=== PATIENT | male | born 1960 | race African-American/Black ===

== ENCOUNTER 2019-10-07 07:12 | Day surgery (SDC) | payer BC ==
[~2019-10-07] VITALS: Ht 172.7 cm; Wt 117.9 kg
[2019-10-07] VITALS (10 sets, daily range): BP systolic 108–148; BP diastolic 67–89
[2019-10-07] MEDS ORDERED: Midazolam 2mg/2ml Inj ONE (07:13)
[2019-10-07] MEDS ORDERED: fentaNYL 100 mcg/2 mL IV ONE (07:13)
[2019-10-07] MEDS ORDERED: ALLOPURINOL300 M1 ORAL (08:10)
[2019-10-07] MEDS ORDERED: BENAZEPRIL HCL20 MG ORAL (08:10)
[2019-10-07] MEDS ORDERED: VITAMIN D250 MCG PO (08:10)
[2019-10-07] MEDS ORDERED: DICYCLOMINE HCL10 MG ORAL (08:10)
[2019-10-07] MEDS ORDERED: FLOMAX0.4 MG ORAL (08:10)
[2019-10-07] MEDS ORDERED: ASPIR 8181 MG ORAL (08:10)
[2019-10-07] MEDS ORDERED: DICLOFENAC SODI50 MG ORAL (08:10)
[2019-10-07] MEDS ORDERED: Propofol 200mg/20ml IV ONE (09:30)
--- NOTE | 2019-10-07 09:34 | Pre-Procedure Note/Attestation ---
Pre-Procedure Note/Attestation Complete Prior to Procedure Planned Procedure: not applicable Procedure Narrative: colonoscopy Indications for Procedure Pre-Operative Diagnosis: screening colon Attestation I attest that I discussed the nature of the procedure; its benefits; risks and complications; and alternatives (and the risks and benefits of such alternatives ), prior to the procedure, with the patient (or the patient's legal employer relations representative). I attest that, if there was a reasonable possibility of needing a blood transfusion, the patient (or the patient's legal employer relations representative) was given the [facility] standardized written summary, pursuant to the Rajendra Patrick Blood Safety Act ([place] Health and Safety Code # 1645, as amended). I attest that I re-evaluated the patient just prior to the surgery and that there has been no change in the patient's H&P, except as documented below: Ousmane Maki MD Oct 07, 2019 09:34
--- NOTE | 2019-10-07 09:35 | Short Stay Surgery H&P ---
History of Present Illness History of Present Illness Chief Complaint screening colon HPI Lance Garcia is a 59 year old male who was admitted on for Colon Screening Patient History Allergies: Coded Allergies: No Known Allergies (Unverified , 10/07/19) PAST MEDICAL HISTORY: (1) HTN (hypertension) Medication History Scheduled Allopurinol* (Allopurinol*), 300 MG ORAL DAILY, (Reported) Aspirin* (Aspir 81*), 81 MG ORAL DAILY, (Reported) Benazepril Hcl* (Benazepril Hcl*), 20 MG ORAL DAILY, (Reported) Diclofenac Sod* (Voltaren*), 50 MG ORAL BID, (Reported) Dicyclomine Hcl* (Dicyclomine Hcl*), 10 MG ORAL BID, (Reported) Ergocalciferol (Vitamin D2) (Vitamin D2), 1.25 MG PO EVERY SATURDAY, (Reported) Tamsulosin HCl (Flomax), 0.4 MG ORAL DAILY, (Reported) Review of Systems Cardiovascular: Reports: no symptoms Respiratory: Reports: no symptoms Skeletal: Reports: no symptoms Gastrointestinal: Reports: no symptoms Genitourinary: Reports: no symptoms Neurologic: Reports: no symptoms Endocrine: Reports: no symptoms Physical Exam Vital Signs Last Vital Signs Date Time Temp Pulse Resp B/P (MAP) Pulse Ox O2 Delivery O2 Flow Rate FiO2 10/07/19 08:17 Room Air 10/07/19 07:57 98.5 82 18 115/78 97 Skin: normal HENT: normal Heart: normal Lungs: normal Abdomen: normal Extremities: normal Plan Plan of Care colonoscopy Attestation Are the patient's medical conditions optimized for surgery? Attestation Response: yes Ousmane Maki MD Oct 07, 2019 09:35
[2019-10-07] MEDS ORDERED: LR 1000ml 1,000 ML IVLG SCH (09:45)
[2019-10-07] MEDS ORDERED: fentaNYL 100 mcg/2 mL IV PRN (09:45)
--- NOTE | 2019-10-07 09:45 | Anethesia Preoperative Eval ---
Anesthesia Pre-op PMH/ROS General Date of Evaluation: Oct 07, 2019 Time of Evaluation: 09:22 Anesthesiologist: Christie ASA Score: ASA 2 Mallampati Score Class I : Soft palate, uvula, fauces, pillars visible Class II: Soft palate, uvula, fauces visible Class III: Soft palate, base of uvula visible Class IV: Only hard plate visible Mallampati Classification: Class II Surgeon: Shanthi Diagnosis: Abdominal pain Surgical Procedure: Colonoscopy Anesthesia History: none Family History: no anesthesia problems Allergies: Coded Allergies: No Known Allergies (Unverified , 10/07/19) Medications: see eMAR Patient NPO?: Yes Past Medical History Cardiovascular: Reports: HTN; Denies: CAD, GA, valve dz, arrhythmia, other Pulmonary: Denies: asthma, COPD, PIO, other Gastrointestinal/Genitourinary: Reports: GERD; Denies: CRI, ESRD, other Neurologic/Psychiatric: Reports: other - chronic pain; Denies: dementia, CVA, depression/anxiety, TIA Endocrine: Denies: DM, hypothyroidism, steroids, other HEENT: Denies: cataract (L), cataract (R), glaucoma, [place] (L), [place] (R), other Hematology/Immune: Denies: anemia, DVT, bleeding disorder, other Musculoskeletal/Integumentary: Denies: OA, RA, DJD, DDD, edema, other Other: obesity PMH Narrative: as above PSxH Narrative: see H&P Anesthesia Pre-op Phys. Exam Physician Exam Last Vital Signs Date Time Temp Pulse Resp B/P (MAP) Pulse Ox O2 Delivery O2 Flow Rate FiO2 10/07/19 08:17 Room Air 10/07/19 07:57 98.5 82 18 115/78 97 Constitutional: NAD Neurologic: CN 2-12 intact Cardiovascular: RRR, no M/R/G Respiratory: CTA Gastrointestinal: other - obesity Airway Exam Mallampati Score: Class III MO: limited Neck: short ROM: limited Teeth: missing Dentures: no upper, no lower Anesthesia Pre-op A/P Labs see chart Studies Pre-op Studies: EKG - NSR Risk Assessment & Plan Assessment: ASA 2 Plan: MAC Status Change Before Surgery: Berhane Sweeney MD Oct 07, 2019 09:45
--- NOTE | 2019-10-07 09:57 | Endoscopy Procedure Note ---
Endoscopy Procedure Note General Indication for Procedure: screening Procedures Performed: colonoscopy Operative Findings/Diagnosis: 7 polyps Specimen: yes Pt Tolerated Procedure Well: Yes Estimated Blood Loss: none Anesthesia Anesthesiologist: jackie Anesthesia: MAC Inserted Devices Implant(s) used?: No Quality Quality of Bowel Preparation: Excellent Did scope reach the cecum?: Yes Was there any complications?: No GI Core Measures 50 yrs or older w/o bx or poly: No 10yrs. F/U recommended: Yes If not recommended, why?: Above average risk 18 years or older w/prev. colo: Yes <3yrs. since last colonoscopy: No Ousmane Maki MD Oct 07, 2019 09:57
--- NOTE | 2019-10-07 10:00 | Immediate Post-Op Evaluation ---
Immediate Post-Op Evalulation Immediate Post-Op Evalulation Procedure: Colonoscopy Date of Evaluation: Oct 07, 2019 Time of Evaluation: 09:59 IV Fluids: 600 Blood Products: none Estimated Blood Loss: none Urinary Output: none Blood Pressure Systolic: 108 Blood Pressure Diastolic: 67 Pulse Rate: 76 Respiratory Rate: 20 O2 Sat by Pulse Oximetry: 99 Temperature (Fahrenheit): 97.7 Pain Score (1-10): 1 Nausea: No Vomiting: No Complications none Patient Status: awake, patent, none Hydration Status: adequate Berhane Soriano MD Oct 07, 2019 10:00
--- NOTE | 2019-10-07 11:31 | 48 Hour Post Anesthesia Eval ---
Post Anesthesia Evaluation Procedure: Colonoscopy Date of Evaluation: Oct 07, 2019 Time of Evaluation: 11:30 Blood Pressure Systolic: 148 0: 72 Pulse Rate: 68 Respiratory Rate: 20 Temperature (Fahrenheit): 97.7 O2 Sat by Pulse Oximetry: 98 Airway: patent Nausea: No Vomiting: No Pain Intensity: 1 Hydration Status: adequate Cardiopulmonary Status: stable Mental Status/LOC: patient returned to baseline Follow-up Care/Observations: n/a Post-Anesthesia Complications: none Follow-up care needed: ready to discharge Berhane Soriano MD Oct 07, 2019 11:31
--- NOTE | 2019-10-07 16:00 | Procedure Note ---
DATE OF PROCEDURE: 10/07/2019 SURGEON: Ousmane Maki M.D. REFERRING PHYSICIAN: Live Munoz M.D. PROCEDURE: Colonoscopy with biopsy. ANESTHESIA: Per Dr. Soriano. INSTRUMENT: Olympus adult flexible colonoscope. INDICATION: Screening colonoscopy evaluation. REASON FOR PROCEDURE: The procedure, risks, benefits, and possible consequences, including hemorrhage, aspiration, perforation and infection, and alternative treatments, were explained to the patient/legal guardian by Dr. Ousmane Maki and the patient/legal guardian understood and accepted these risks. PROCEDURE IN DETAIL: After informed consent was obtained and the patient was adequately sedated, first rectal exam was performed, which was normal. Then, the scope was advanced from the rectum to the cecum, then subsequently to terminal ileum. Quality of prep was very good. The patient had a total of seven polyps from this colonoscopy examination, one in transverse colon and and in the rectosigmoid area where all hyperplastic looking, all small. The patient has evidence of diverticulosis mainly in the left colon and some scattered on the right colon. Retroflexion of rectum showed evidence of internal hemorrhoids. SUMMARY OF FINDINGS: 1. Diverticulosis. 2. Seven colonic polyps removed. See above for details. 3. Internal hemorrhoids. RECOMMENDATIONS: 1. Follow pathology. 2. We recommend repeat colonoscopy in three years. I want to Dr. Live Munoz for this kind referral. Ousmane Maki M.D. DR: VALERIA JOB#: [id number] CC: Live Munoz M.D.; Fax#: [phone]
== END 2019-10-07 11:05 | disposition home or self-care (01) ==
LOC: GAS 07:12
DX: Z12.11 Encounter for screening for malignant neoplasm of colon (principal); K57.90 Diverticulosis of intestine, part unspecified, without perforation or abscess without bleeding; K63.5 Polyp of colon; K64.8 Other hemorrhoids; I10 Essential (primary) hypertension; E66.9 Obesity, unspecified; Z68.39 Body mass index [BMI] 39.0-39.9, adult
CPT/HCPCS: 45380; 93005; J2250; J2704; J3010; 94003; 94150